=== PATIENT | male | born 1950 | race Caucasian/White ===

== ENCOUNTER 2019-04-02 13:02 | Outpatient (CLI) | payer MEDICARE, BC ==
--- NOTE | 2019-04-02 14:32 | PET ---
EXAM: PET CT skull to mid thigh COMPARISON: 02/01/2019 HISTORY: Cancer of the urinary bladder TECHNIQUE: A PET/CT was performed from the skull to the mid thigh after administration of 11.2 millic uries of F-18 FDG. Evaluation was performed on a [employer] workstation. FINDINGS: NECK: No areas of hypermetabolic activity. The previously seen hypermetabolic lymph nodes in the left supraclavicular region now have a max SUV value of 2.1. CHEST: No areas of hypermetabolic activity ABDOMEN/PELVIS: The hypermetabolic lymph nodes in the retroperitoneum and along the common iliac lea n have decreased in metabolic activity. Maximum SUV value of these lymph nodes is approximately 2.7. No new areas of hypermetabolic activity are seen. SKELETON: No areas of hypermetabolic activity CT images used for attenuation correction show a pacemaker with its leads in the right atrium and samuel tricle. There is an ostomy in the right lower quadrant of the abdomen. There is a stent in the right external iliac artery. IMPRESSION: Improvement in hypermetabolic activity within the left supraclavicular lymph nodes and re troperitoneal lymph nodes.
== END 2019-04-02 13:03 | disposition home or self-care (01) ==
LOC: PET 13:02
PROVIDERS: ATTEND Internal Medicine Hematology & Oncology
DX: C67.9 Malignant neoplasm of bladder, unspecified (principal)
CPT/HCPCS: 78815; A9552

== ENCOUNTER 2019-05-30 09:51 | Outpatient (CLI) | payer MEDICARE, BC ==
--- NOTE | 2019-05-30 15:41 | NM ---
NUCLEAR MEDICINE WHOLE BODY BONE SCAN: HISTORY: Malignant neoplasm of overlapping sites of bladder. COMPARISON: None. TECHNIQUE: The patient was administered 31.30 mCi of Technetium 99m MDP intravenously. Whole body delayed imagi ng is performed. FINDINGS: There is diffuse multifocal radiotracer localization involving the axial as well as appendicular skel eton. Specifically, there is uptake in the calvarium, bilateral shoulders, bilateral clavicles (left greater than right), multiple ribs, multiple thoracic and lumbar vertebrae. There is also uptake in the sacrum, bony pelvis, and proximal to mid left and right femur. IMPRESSION: Multifocal osseous metastases. POS: OFF
== END 2019-05-30 09:52 | disposition home or self-care (01) ==
LOC: NM 09:51
PROVIDERS: ATTEND Internal Medicine Hematology & Oncology
DX: C67.8 Malignant neoplasm of overlapping sites of bladder (principal); C79.51 Secondary malignant neoplasm of bone
CPT/HCPCS: 78306; A9503

== ENCOUNTER 2019-06-24 12:38 | Day surgery (SDC) | payer MEDICARE, BC ==
[2019-06-24 13:15] VITALS: BMI 27.0
[2019-06-24] MEDS ORDERED: Acetaminophen 500 MG TAB PO SCH (13:15)
[2019-06-24] MEDS ORDERED: diphenhydrAMINE 25 MG CAP PO SCH (13:15)
[2019-06-24 18:20] VITALS: BP 115/61; TEMP 97.8
[2019-06-24 18:45] LABS: #Eosinphils 0.1 thou/uL (0.0-0.7); #Lymphocytes 0.5 thou/uL (1.20-3.40); #Monocytes 0.4 thou/uL (0.11-0.59); #Neutrophils 3.6 thou/uL (1.40-6.50); %Basophils 0.2 % (0.0-1.0); %Eosinophils 1.1 % (0.0-10.0); %Lymphocytes 11.1 % (21.0-51.0); %Monocytes 8.1 % (0.0-10.0); %Neutrophils 79.5 % (42.0-75.0); Hemoglobin 7.9 g/dL (14.0-18.0); Mean Corpuscular HGB CONC 31.8 g/dL (32.0-36.0); Mean Corpuscular Hemoglobin 25.3 pg (27.0-31.0); Mean Corpuscular Volume 79.5 fL (78.0-98.0); Platelet Count 161 thou/uL (130-400); RBC Distribution Width 16.9 % (11.5-14.5); Red Blood Cell (RBC) Count 3.13 mill/uL (4.70-6.10); White Blood Cell (WBC) Count 4.5 thou/uL (4.8-10.8)
== END 2019-06-24 18:45 | disposition home or self-care (01) ==
LOC: ONC/OP 12:38 → ONC 12:43 → ONC/OP 18:45
PROVIDERS: ATTEND Internal Medicine Hematology & Oncology
PROC: 30233N1 Transfusion of Nonautologous Red Blood Cells into Peripheral Vein, Percutaneous Approach (ICD-10-PCS; principal; 2019-06-24)
DX: D64.9 Anemia, unspecified (principal); D69.6 Thrombocytopenia, unspecified
CPT/HCPCS: 36415; 36430; 80053; 85025; 86850; 86900; 86901; P9016; Q0163

== ENCOUNTER 2019-07-02 15:05 | Inpatient (IN) | payer MEDICARE, BC ==
[2019-07-02 15:54] LABS: #Lymphocytes 0.1 thou/uL (1.20-3.40); #Monocytes 0.1 thou/uL (0.11-0.59); #Neutrophils 1.3 thou/uL (1.40-6.50); %Basophils 0.7 % (0.0-1.0); %Eosinophils 0.2 % (0.0-10.0); %Lymphocytes 8.8 % (21.0-51.0); %Monocytes 4.1 % (0.0-10.0); %Neutrophils 86.1 % (42.0-75.0); Mean Corpuscular HGB CONC 32.2 g/dL (32.0-36.0); Mean Corpuscular Volume 77.5 fL (78.0-98.0); RBC Distribution Width 16.8 % (11.5-14.5); Red Blood Cell (RBC) Count 3.18 mill/uL (4.70-6.10); White Blood Cell (WBC) Count 1.5 thou/uL (4.8-10.8)
[2019-07-02 16:12] LABS: MDiff Complete? YES; Mean Platelet Volume 10.3 fL (7.4-10.4); Platelet Count 90 thou/uL (130-400)
[2019-07-02 16:13] LABS: Microcytosis SLIGHT = 6-15 cells (100X) (0-5/hpf); Ovalocytes SLIGHT = 2-5 cells (100X) (0-1/hpf); Platelet Morphology Comment Appears Decreased; Polychromasia SLIGHT = 2-3 cells (100X) (0-2/hpf); Schistocytes SLIGHT = 2-5 cells (100X) (0-1/hpf); Target Cells SLIGHT = 2-5 cells (100X) (0-1/hpf); Tear Drops SLIGHT = 2-5 cells (100X) (0-1/hpf)
[2019-07-02 16:24] LABS: ALT (SGPT) 24 U/L (8-55); AST (SGOT) 41 U/L (5-34); Alkaline Phosphatase 521 U/L (40-110); Anion Gap 20 mmol/L (10-20); BUN (Urea Nitrogen) 105 mg/dL (8.4-25.7); Calc. Creatinine Clearance 0 mL/min (70-130); Calcium 7.6 mg/dL (7.8-10.44); Carbon Dioxide 13 mmol/L (23-31); Chloride 97 mmol/L (98-107); Estimated GFR-MDRD 12; Globulin 3.3 g/dL (2.4-3.5); Glucose 278 mg/dL (80-115); Potassium 4.3 mmol/L (3.5-5.1); Protein, Total 6.3 g/dL (5.8-8.1); Sodium 126 mmol/L (136-145)
--- NOTE | 2019-07-02 16:30 | RAD ---
EXAM: Single view of the chest HISTORY: Abnormal laboratory values. Chest pain. COMPARISON: 06/05/2018 FINDINGS: Single view of the chest shows an enlarged but stable cardiomediastinal silhouette. The pa cemaker is unchanged in position. There is no evidence of consolidation, mass, or pleural effusion. The bones are unremarkable. IMPRESSION: No evidence of acute cardiopulmonary disease
[2019-07-02] MEDS ORDERED: Triple Antibiotic Oint 1 GM Packet ONE (16:41)
[2019-07-02 16:47] LABS: CKMB 2.8 ng/mL (0-6.6)
[2019-07-02 16:57] LABS: Bacteria/HPF 4+ HPF (None Seen); Bilirubin Negative (Negative); Blood, Urine 3+ (Negative); Clarity Turbid (Clear); Glucose, Urine (Dipstick) Normal (Negative); Leukocyte 500 Leu/uL (Negative); Nitrite Negative (Negative); Protein, Urine (Dipstick) 100 mg/dL (Neg-Trace); RBC/HPF Greater than 50 HPF (0-3); Squamous Epithelial None Seen HPF (0-3); Urobilinogen Normal mg/dL (Less than 2)
[2019-07-02] MEDS ORDERED: Senokot S 8.6-50 MG TAB PO PRN (19:17)
[2019-07-02 19:26] LABS: Troponin I 0.028 ng/mL (< 0.028)
[2019-07-02] MEDS: Famotidine 20 MG TAB PO SCH (22:00)
[2019-07-02] MEDS: GoLYTELY 4,000 ml Bottle PO SCH ×2 (22:00→23:46)
[2019-07-02 22:02] LABS: Troponin I 0.027 ng/mL (< 0.028)
[2019-07-02] MEDS: Acetaminophen 325 MG TAB PO PRN (22:03)
[2019-07-02] MEDS: Sodium Chloride 0.9% 1,000 ML IV SCH (23:00)
[2019-07-02] MEDS ORDERED: Cefepime 1 GM in Sodium Chloride 0.9% 100 ML IVPB SCH (23:00)
--- NOTE | 2019-07-02 23:20 | HP ---
PRIMARY CARE PHYSICIAN: Dr. Serra. PROCEDURES: Dr. Bennett. ONCOLOGIST: Dr. Naqvi. CHIEF COMPLAINT: Abnormal renal function. HISTORY OF PRESENT ILLNESS: Mr. Mariee is a 68-year-old man who reported to the emergency room after he was noted to have acute on chronic kidney injury, is a patient of Dr. Naqvi for recurrent bladder cancer, received chemo today. Creatinine has slowly been increasing, was 3.96 on 06/25 and then today this morning it was 4.91 and then this afternoon we rechecked it, it was 4.78. Dr. Naqvi had referred the patient to Dr. Bennett some weeks ago when his creatinine continued to climb and he was contacted today and asked for the patient to come to the emergency room. He was also found to have a sodium of 126; when it was checked on 06/25/2019, it was 133; chloride 97, carbon dioxide 13, BUN is 105, creatinine 4.78, estimated GFR is 12, glucose 278, calcium 7.6, AST 41, alkaline phosphatase at 521. Initial troponin was bumped at 0.030. Subsequent troponins have been undetectable. White blood cell count 1.5, hemoglobin at 8, which is at baseline per patient, hematocrit at 24.7, and platelets at 90. Urine shows turbid urine, protein, 3+ blood, leukocyte esterase at 500, white blood cell count 11 to 20, and 4+ bacteria. This has been sent off for culture. Past medical history is pertinent for bladder cancer, DVT, has an AICD for decreased EF, last checked it was 35%. Has an ileocecal conduit and has bilateral ureteral stents. Chemotherapy done today was the second round and he also reports that he got steroids today with his chemo. Urologist is Dr. Lazo in [place] who replaces the bilateral stents every 3 months and he is due to have this done next week. He reports that he feels pretty crummy and is fatigued. Has had a decreased appetite and also decreased fluid intake. Reports some chronic constipation due to the tramadol that he takes. He was recently told that he has some metastases to the bone per the . Reports history of MRSA and some Pseudomonas. Dr. Bennett has seen him in the emergency room and reports that he was going to hydrate the patient, recheck vital signs and see where his renal function is at that point. The patient admitted to the telemetry unit for further management and evaluation. REVIEW OF SYSTEMS: The patient reports fatigue. Denies abdominal pain. Does report appetite changes. Reports constipation. He does report some intermittent abdominal pain around the urostomy, which he reports is relatively new. He reports some confusion and does report some depressive type symptoms around his recent metastases discussion. All systems are reviewed and are negative unless mentioned in the HPI. PAST MEDICAL HISTORY: Bladder cancer, DVT, decreased EF, had a pericardial effusion, has bilateral ureteral stents. PAST SURGICAL HISTORY: Bladder is removed in 2016, was revised. Has an ileal conduit, AICD which was placed in 2018. PSYCHIATRIC HISTORY: Depression. SOCIAL HISTORY: The patient lives at home with his family. He is a former tobacco smoker. Denies drug use or alcohol use. KNOWN ALLERGIES: Adhesive tape, codeine, and vancomycin. HOME MEDICATIONS: Per the ER record, these still need to be reconciled. 1. Eliquis 5 mg p.o. b.i.d. 2. Levothyroxine 175 mcg. 3. Sertraline 300 mg p.o. once a day. 4. Metoprolol 25 mg p.o. once a day. 5. Lamictal 100 mg p.o. once a day. 6. Abilify 2 mg p.o. once a day. 7. Humalog sliding scale. 8. Lantus 30 units subcu b.i.d. 9. Multivitamin with iron 60 mg once a day. 10. Prilosec 20 mg p.o. once a day. 11. Aspirin 81 mg p.o. once a day. 12. Flexeril 10 mg as needed p.r.n. 13. Prosom 1 mg p.r.n. 14. Xanax 0.25 mg p.r.n. 15. Magnesium 400 mg p.o. once a day. 16. Fish oil 300 mg daily. 17. Zofran 4 mg p.o. q.6 hours as needed. PHYSICAL EXAMINATION: VITAL SIGNS: Blood pressure 133/78, pulse is 100, respiratory rate is 20, temp is 98.4, pO2 sats are 100% on room air. CONSTITUTIONAL: The patient appears nontoxic. He is alert and oriented to person, place, and time. HEENT: Head is atraumatic and normocephalic. Eyes, pupils are equally round and reactive to light. Eyelids are normal to inspection. ENT; mouth exam, mucous membranes are dry, teeth are normal. NECK: Normal range of motion. Trachea is midline. RESPIRATORY/CHEST: Breath sounds are clear. Chest expansion is equal. CARDIOVASCULAR: Irregularly irregular. Heart sounds are normal. ABDOMEN: Bowel sounds are hypoactive. Mild point tenderness to either side lateral of stoma. He has a urostomy to right lower quadrant. BACK: Normal range of motion. No tenderness. EXTREMITIES: Upper extremities; motor strength is normal, sensation intact, radial pulses are normal. Lower extremities; normal range of motion, motor strength is normal, pedal pulses are normal. There is no edema noted. NEURO: The patient is oriented to person, place, and time. Speech is normal. SKIN: Warm, dry, normal in color. He is pale, however. PSYCHIATRIC: He has a normal affect. DIAGNOSTIC DATA: EKG in the emergency room shows atrial fibrillation with controlled ventricular response. Has a complete left bundle branch block. T-waves are normal. ST segments are normal. [place] is left. ASSESSMENT AND PLAN: 1. Acute on chronic renal disease. Dr. Bennett has been invited to see the patient in the emergency room. We will add a consult for him. Gently hydrate. Recheck values of his creatinine and sodium in the morning. Hold any nephrotoxic home medications. 2. Hyponatremia. See #1. 3. Atrial fibrillation, rate controlled. We will continue the Eliquis. 4. Diabetes. Add a sliding scale. Restart long-acting insulin. We will monitor a.c. and at bedtime Accu-Cheks. 5. History of hypothyroidism. We will restart home medications. 6. History of depression. We will restart home medications. 7. History of bladder cancer with chemotherapy ongoing. We will ask Dr. Naqvi to consult. 8. Long discussion with the patient on code status. Does not desire CPR or cardiac intervention. He is willing for intubation if it is for a short period. is was at the bedside during discussion on palliative care consult, which they were agreeable. We had made the patient intubation only and would appreciate Palliative Care's input. 9. The patient is already on deep venous thrombosis and gastrointestinal prophylaxis. 10. We have placed the patient in neutropenic precautions due to white blood cell count and ongoing chemotherapy. 11. Hospital course is dependent on clinical findings. Job ID: [id number]
[2019-07-03] MEDS: GoLYTELY 4,000 ml Bottle PO SCH ×5 (02:56→11:30)
[2019-07-03 06:48] LABS: #Lymphocytes 0.2 thou/uL (1.20-3.40); #Monocytes 0.1 thou/uL (0.11-0.59); #Neutrophils 2.9 thou/uL (1.40-6.50); %Eosinophils 0.2 % (0.0-10.0); %Lymphocytes 5.2 % (21.0-51.0); %Monocytes 2.1 % (0.0-10.0); %Neutrophils 92.4 % (42.0-75.0); Hemoglobin 7.2 g/dL (14.0-18.0); Mean Corpuscular HGB CONC 33.3 g/dL (32.0-36.0); Mean Corpuscular Volume 78.1 fL (78.0-98.0); Mean Platelet Volume 9.6 fL (7.4-10.4); Platelet Count 79 thou/uL (130-400); RBC Distribution Width 17.1 % (11.5-14.5); Red Blood Cell (RBC) Count 2.76 mill/uL (4.70-6.10); White Blood Cell (WBC) Count 3.1 thou/uL (4.8-10.8)
[2019-07-03 07:10] LABS: ALT (SGPT) 24 U/L (8-55); AST (SGOT) 44 U/L (5-34); Albumin 2.6 g/dL (3.4-4.8); Alkaline Phosphatase 422 U/L (40-110); Anion Gap 19 mmol/L (10-20); BUN (Urea Nitrogen) 118 mg/dL (8.4-25.7); Bilirubin, Total 1.1 mg/dL (0.2-1.2); Calc. Creatinine Clearance 21 mL/min (70-130); Calcium 7.8 mg/dL (7.8-10.44); Carbon Dioxide 15 mmol/L (23-31); Chloride 100 mmol/L (98-107); Estimated GFR-MDRD 12; Globulin 3.8 g/dL (2.4-3.5); Glucose 244 mg/dL (80-115); Potassium 4.2 mmol/L (3.5-5.1); Protein, Total 6.4 g/dL (5.8-8.1); Sodium 130 mmol/L (136-145)
--- NOTE | 2019-07-03 07:46 | CON ---
DATE OF CONSULTATION: HISTORY OF PRESENT ILLNESS: Mr. Mariee is a 68-year-old white male, known history of chronic renal failure, metastatic bladder cancer, and recently underwent status post palliative chemotherapy. During the initial evaluation by metal machinist, his creatinine was noted to have worsened to more than 4 mg%. In the last clinic visit, he was averaging at about 3.88 mg%. Initially, we felt that he may have had a vancomycin-induced acute renal failure. However, in the last several days, the patient has had decreased p.o. intake. There was also 7-pound weight loss according to the . His p.o. intake is much decreased. REVIEW OF SYSTEMS: Positive for generalized malaise, decreased appetite, and decreased energy level. No gross hematuria. No dysuria. No hematochezia. No melena. No hematemesis. No abdominal pain. No nausea or vomiting. No headache. No diplopia. No chest pain or shortness of breath. HOME MEDICATIONS: Included: 1. Eliquis 5 mg p.o. b.i.d.? 2. Levothyroxine 175 mcg daily. 3. Sertraline 300 mg once a day. 4. Metoprolol ER 25 mg once a day. 5. Lamotrigine 100 mg once a day. 6. Abilify 2 mg daily. 7. Humalog KwikPen - sliding scale. 8. Lantus 30 units subcutaneously b.i.d. 9. Iron tablets 1 tablet b.i.d. 10. Prilosec 20 mg once a day. 11. Alprazolam 0.25 mg p.r.n. 12. Magnesium gluconate 400 mg once a day. 13. Status post daptomycin IV q.2 days. 14. Chemotherapy q.week. PAST MEDICAL HISTORY: 1. Chronic renal failure, multifactorial etiology - ? of vancomycin-induced acute tubular necrosis/interstitial nephritis. 2. Bladder cancer with metastasis, uroepithelial cancer. 3. Status post deep venous thrombosis/status post pulmonary embolism. 4. ? of cirrhosis. 5. Status post pyelonephritis. 6. Status post acute kidney injury. 7. History of renal cortical necrosis. 8. ? cardiomegaly. 9. Bilateral hydronephrosis, currently resolved. 10. Status post atrial fibrillation. 11. Status post melanoma. 12. Seizure disorder. 13. Hypertension. 14. Hypothyroidism. PAST SURGICAL HISTORY: 1. Status post ileostomy. 2. Status post ileal conduit placement. 3. Status post cystectomy. 4. Status post pacemaker placement. 5. Status post lymphadenectomy. 6. Status post bilateral ureteral stent placement. 7. Status post upper GI endoscopy. 8. Status post TURP. 9. Status post cystoscopy. 10. Status post IVC filter placement. 11. Status post left nephrostomy tube placement. 12. Status post colonoscopy. 13. Status post cardiac catheterization. 14. Status post AICD placement. SOCIAL HISTORY: The patient lives in [place], , 3 step children. 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 Education, college graduate. He smoked for 27 years, 2 packs a day, currently not smoking. Currently, no alcohol. Status post blood transfusion. ALLERGIES: ? OF VANCOMYCIN. IMMUNIZATIONS: Up-to-date. TRAUMA: None. HOSPITALIZATIONS: Please see past medical history. FAMILY HISTORY: No family history of ESRD. PHYSICAL EXAMINATION: VITAL SIGNS: Blood pressure is 90/70, heart rate is 70, weight 227 pounds, height 60, BMI of 27. GENERAL: Awake, alert, comfortable, lethargic, not in overt distress. SKIN: Decreased turgor. HEENT: Slightly pale conjunctivae. Anicteric sclerae. NECK: No neck mass. No carotid bruits. No JVD. CHEST: No deformities. LUNGS: Clear breath sounds. No wheezing. No crackles. HEART: Normal sinus rhythm. No murmurs. No gallops. No rubs. ABDOMEN: Globular, soft, and nontender. No masses. Positive for ileostomy site. EXTREMITIES: Trace edema. NEUROLOGIC: The patient is awake, oriented to 3 spheres, not in distress. Moving all extremities. IMAGING STUDIES: Chest x-ray shows no CHF or any infiltrates. LABORATORY DATA: July 02, 2019; white count 1.5, hemoglobin is 8, hematocrit 24.7. Sodium 126, potassium 4.3, chloride 97, carbon dioxide 13, BUN 105, creatinine 4.78, glucose 278, calcium 7.6. Troponin I of 0.030. AST 41, ALT 24, alkaline phosphatase 521. Albumin is 3.0. ASSESSMENT AND PLAN: 1. Acute kidney injury on top of his chronic renal failure - I suspect a prerenal component with this patient. He has had weight loss of about 7 pounds and has decreased p.o. intake. Continue current IV hydration. Currently, on normal saline at 125 mL/hour. I will probably also include albumin infusion with this patient at 25 g IV q.6. I do not see any indication for any emergent hemodialysis with this patient. 2. Pancytopenia secondary to his chemotherapy. 3. Hypoalbuminemia. Decreased p.o. intake as well as ? of history of cirrhosis. Albumin infusion at 25 g IV q.6. 4. There is no evidence of volume overload by examination or by chest x-ray. 5. Metabolic acidosis. Start sodium bicarbonate 650 mg p.o. t.i.d. 6. Continue supportive care. Please note, this patient has history of metastatic cancer from a uroepithelial etiology. Thank you for the consult. We will continue to follow. Job ID: [id number]
[2019-07-03] MEDS: Polyethylene Glycol 3350 17 GM Packet PO SCH ×2 (08:14→20:37)
[2019-07-03] MEDS: Sodium Bicarbonate Tab 325 MG TAB PO SCH ×3 (08:47→20:37)
[2019-07-03] MEDS: Sodium Chloride 0.9% 1,000 ML IV SCH ×2 (08:48→17:44)
--- NOTE | 2019-07-03 09:09 | PRG ---
DATE OF SERVICE: 07/03/2019 SUBJECTIVE: Mr. Mariee is a 68-year-old white male with known multiple medical problems, which includes chronic renal failure secondary to a presumed acute kidney injury from ATN/interstitial nephritis from his vancomycin. He was seen in the clinic several weeks ago and creatinine was about 3.7, but this has worsened over time. I feel that there is a component of volume depletion with this patient. We have started him on normal saline. This morning, we will start him on albumin infusion. He has also received palliative chemotherapy with Dr. Naqvi. He is currently pancytopenic. The patient voices no complaints of chest pain or shortness of breath. Please note, the chest x-ray showed clear findings yesterday. OBJECTIVE: VITAL SIGNS: Blood pressure 96/59, heart rate 91, respiratory rate 16, temperature 97.7, and pulse ox 99% on room air. GENERAL: Awake, alert, sitting comfortable, not in distress. SKIN: Adequate turgor. HEENT: He has slightly pale conjunctivae. Anicteric sclerae. No neck mass. No carotid bruits. No JVD. CHEST: No deformities. LUNGS: Clear breath sounds. No wheezing. No crackles. HEART: Normal sinus rhythm. No murmurs. No gallops. No rubs. ABDOMEN: Globular, soft, and nontender. No masses. EXTREMITIES: No edema. No deformities. Please note, he has an ileostomy. MEDICATIONS: Medications of July 03, 2019, were reviewed. LABORATORY DATA: Laboratories of July 03, 2019; white count 3.1, hemoglobin 7.2. Sodium 130, potassium 4.2, chloride 100, carbon dioxide 15, BUN 118, creatinine 4.85, GFR 12 mL/minute, glucose 244, calcium 7.8, AST 44, ALT 24, and albumin is 2.6. ASSESSMENT AND PLAN: 1. Acute kidney injury on top of his chronic renal failure - superimposed prerenal azotemia. Continue normal saline, volume repletion. In addition, we will add albumin 25 g IV q.6 for the next several days. There is no indication for any dialytic intervention. 2. Chronic renal failure - consider the possibility of pervious chronic renal injury from chronic interstitial nephritis? Continue supportive care. 3. We will attempt to do another renal ultrasound on this patient. Please note, his urinalysis on July 02, 2019, showed 3+ blood, rbc is greater than 50, wbc is 11 to 20. He has also proteinuria. 4. Overall agree with current management. Continue supportive care. Recheck basic metabolic panel and CBC in a.m. Job ID: [id number]
--- NOTE | 2019-07-03 11:15 | CON ---
DATE OF CONSULTATION: REASON FOR CONSULT: Urothelial carcinoma. HISTORY OF PRESENT ILLNESS: Mr. Mariee is a pleasant 68-year-old gentleman with metastatic urothelial carcinoma, who has been on treatment with gemcitabine. He presented to the clinic yesterday with weakness and confusion. His creatinine has been climbing over the last several weeks, so he was sent to the emergency room for evaluation. The patient has a longstanding history of carcinoma in situ of the bladder, underwent BCG treatments several years ago. He has also had an incarcerated hernia and a history of prostate cancer. He was admitted through the ER yesterday. Dr. Bennett has seen the patient. He was started on hydration. His creatinine was 4.78 yesterday and slightly worse today. The patient was seen at bedside with present. He is confused. He does have some blood in his urine. PAST MEDICAL HISTORY: 1. Metastatic urothelial carcinoma. 2. History of prostate cancer in remission. 3. Recent incarcerated hernia. 4. Coronary artery disease. 5. Diabetes. 6. Hypertension. 7. High cholesterol. 8. History of reflux. 9. History of blood clots. PAST SURGICAL HISTORY: Numerous bladder surgeries, defibrillator placement, incarcerated hernia repair and ileal conduit. ALLERGIES: CODEINE. HOME MEDICATIONS: Abilify, alprazolam, aspirin, Eliquis, estazolam, Humalog, lamotrigine, Lantus, levothyroxine, Megace, metoprolol, iron, Prilosec, tramadol, and Zoloft. FAMILY HISTORY: Sister had lung cancer. Grandfather had prostate cancer. SOCIAL HISTORY: , lives with his spouse. 24-aube-bils history of smoking. REVIEW OF SYSTEMS: Unable to obtain secondary to altered mental status. PHYSICAL EXAMINATION: VITAL SIGNS: Temperature is 97.6, pulse is 80, respiratory rate 20, blood pressure is 88/50. He is 95% on room air. GENERAL: This is a chronically ill-appearing male, in no acute distress. HEENT: Normocephalic, atraumatic. NECK: Supple. CV: Regular rate and rhythm. LUNGS: Clear. ABDOMEN: Obese. Bowel sounds are positive. : He has blood-tinged urine. EXTREMITIES: No clubbing or cyanosis. SKIN: Scattered bruising. NEUROLOGICAL: Nonfocal. PSYCH: He is disoriented. PERTINENT LABS AND X-RAYS: Current WBCs are 3.1, hemoglobin 7.2, hematocrit 21.5, platelet count 79,000. He has 92% neutrophils, 5% lymphocytes. ANC is 2.9. Sodium is 130, potassium 4.2, chloride 100, CO2 is 15, BUN is 118, creatinine 4.85, calcium 7.8, bilirubin 1.1, AST is 44, ALT is 24, alkaline phosphatase is 422. Serum total protein is 6.4, albumin 2.6, globulin 3.8. Urine shows 4+ bacteria. ASSESSMENT: 1. Metastatic urothelial carcinoma with lymph node and bone metastases. 2. History of prostate cancer in remission. 3. Acute on chronic renal failure. 4. Failure to thrive. DISCUSSION: The patient has had decline over the last several weeks with worsening renal function. The patient and spouse have had conversations regarding advance directives and end of life care. They have understood that all treatment was palliative. states she talked to Mr. Mariee yesterday and he would prefer hospice. We will initiate a palliative care consult to assist with planning for inpatient versus home. We will continue to provide supportive care. Thank you for the consult. Job ID: [id number]
[2019-07-03] MEDS: Albumin 25% 25 GM/100 ML BOT IVPB SCH ×2 (12:47→17:42)
--- NOTE | 2019-07-03 15:02 | PDOC.PALCO ---
Palliative Care Consult - Consult Details Requesting Physician: Dr Naqvi Reason for Consult: goals of care, family support, complex decision-making Family Members Present: - Pertinent HPI 68 year old male who is a patient of Dr Naqvi and was at the Cancer [facility] receiving chemo for recurrent bladder cancer. Creatinine has been increasing 3.9 on 06/25 and 4.9 07/02. Patient was sent to the emergency room for evaluation secondary to acute on chronic kidney injury. Onset of Afib, admitted to telemetry for medical management. - Pertinent PMH Bladder cancer, DVT, Decreased EF, pericardial effusion, bilateral ureteral stints, AICD - Social History Smoking Status: Current every day smoker Smoking: quit greater than 1 year Alcohol Use: none Drug Use History: none Living Situation: (Lives independently with his in [place]) - Medications MAR Reviewed: Yes - Allergies Allergies/Adverse Reactions: Allergies Allergy/AdvReac Type Severity Reaction Status Date / Time adhesive tape Allergy Verified 06/24/19 13:21 codeine Allergy Verified 06/24/19 13:13 vancomycin Allergy Verified 06/24/19 13:13 - Subjective Sleeping but arousable, mild confusion. ROS negative with the exception of sleepiness and weakness. - Objective Vital Signs: Vital Signs - Most Recent Temp Pulse Resp BP Pulse Ox 97 F L 90 20 89/58 L 98 07/03/19 12:00 07/03/19 12:00 07/03/19 12:00 07/03/19 12:00 07/03/19 12:00 Palliative Performance Scale: 40 - Advance Directives Medical Power of Editor News: - Physical Exam Constitutional: confusion HEENT: moist MMs, sclera anicteric, EOMI Respiratory: unlabored breathing Cardiovascular: irregular Gastrointestinal: soft, non-tender, positive bowel sounds Skin: cap refill <2 seconds - Problem List (1) Palliative care encounter Code(s): Z51.5 - ENCOUNTER FOR PALLIATIVE CARE Current Visit: Yes Status: Acute (2) [id number] kidney injury Code(s): N17.9 - ACUTE KIDNEY FAILURE, UNSPECIFIED; N18.9 - CHRONIC KIDNEY DISEASE, UNSPECIFIED Current Visit: Yes Status: Acute (3) Bladder cancer Current Visit: Yes Status: Acute - Plan/Recommendations Plan: Life review with , they met at work years ago. Discussed current kidney disease and bladder cancer with and utilized a "teach back method". understands that kidneys may improve slightly but have poor functionality and that limited opportunity to palliate metastatic cancer. Discussed Hospice as well as support in home for [facility]. states she asked her what he wanted and he said "to be comfortable". *Patient enjoys his dogs and games on his tablet. *Allow to process information tonight *revisit in the morning and most likely transition to hospice care. *Palliative care will follow up 08/03 and answer any questions or identify resources to achieve goals of care for this gentleman. *Discussed caregiver strain and measures to allow Mrs Mariee to care for herself by accepting help from her sister and others in her life who are willing to offer support. [75] minutes spent on this encounter with >50% of the time in counseling and coordination of care. Thank you for this very appropriate consult.
[2019-07-03] MEDS: Cefepime 0.5 GM, Admixture Fee 1 EACH in Sodium Chloride 0.9% 100 ML IVPB SCH (20:37)
[2019-07-03] MEDS: Famotidine 20 MG TAB PO SCH (20:37)
[2019-07-04] MEDS: Albumin 25% 25 GM/100 ML BOT IVPB SCH ×5 (00:53→23:14)
[2019-07-04] MEDS: Sodium Chloride 0.9% 1,000 ML IV SCH ×3 (04:35→21:21)
[2019-07-04 05:09] LABS: #Lymphocytes 0.2 thou/uL (1.20-3.40); #Neutrophils 1.7 thou/uL (1.40-6.50); %Eosinophils 0.2 % (0.0-10.0); %Lymphocytes 8.4 % (21.0-51.0); %Monocytes 0.9 % (0.0-10.0); %Neutrophils 90.5 % (42.0-75.0); Hemoglobin 6.3 g/dL (14.0-18.0); Mean Corpuscular HGB CONC 32.8 g/dL (32.0-36.0); Mean Corpuscular Hemoglobin 25.1 pg (27.0-31.0); Mean Corpuscular Volume 76.4 fL (78.0-98.0); Mean Platelet Volume 10.5 fL (7.4-10.4); Platelet Count 55 thou/uL (130-400); RBC Distribution Width 17.1 % (11.5-14.5); Red Blood Cell (RBC) Count 2.52 mill/uL (4.70-6.10); White Blood Cell (WBC) Count 1.9 thou/uL (4.8-10.8)
[2019-07-04 05:15] LABS: Anion Gap 19 mmol/L (10-20); BUN (Urea Nitrogen) 114 mg/dL (8.4-25.7); Calc. Creatinine Clearance 26 mL/min (70-130); Calcium 7.5 mg/dL (7.8-10.44); Carbon Dioxide 13 mmol/L (23-31); Chloride 108 mmol/L (98-107); Estimated GFR-MDRD 16; Glucose 173 mg/dL (80-115); Potassium 4.1 mmol/L (3.5-5.1); Sodium 136 mmol/L (136-145)
[2019-07-04] MEDS ORDERED: Albumin 25% 25 GM/100 ML BOT IVPB ONE (08:31)
--- NOTE | 2019-07-04 08:52 | PRG ---
DATE OF SERVICE: 07/04/2019 SUBJECTIVE: Mr. Mariee is a 68-year-old white male, who was seen for his acute kidney injury on top of his chronic renal failure. We felt that he was volume depleted. For that reason, he is given normal saline as well as albumin infusion. Renal function slightly improved with IV hydration. No new complaints today. Palliative consultation has also been done with the patient in the presence of his . He has no other complaints today. He feels comfortable. OBJECTIVE: VITAL SIGNS: Blood pressure is noted at 124/65, heart rate 98, respiratory rate 17, temperature 97.7, pulse ox 96%. GENERAL: The patient is awake, comfortable, not in overt distress. SKIN: Adequate turgor. HEENT: Pale conjunctivae. Anicteric sclerae. NECK: No neck mass. No carotid bruits. No JVD. CHEST: No deformities. LUNGS: Clear breath sounds. No wheezing. No crackles. HEART: Normal sinus rhythm. No murmurs. No gallops. No rubs. ABDOMEN: Globular, soft, nontender. No masses. Positive for ileostomy. EXTREMITIES: No edema. No deformities. MEDICATIONS: Medications of July 04, 2019, reviewed. LABORATORY DATA: Laboratories of July 04, 2019; white count 1.9, hemoglobin 6.3, platelet count is 55,000. Sodium 136, potassium 4.1, chloride 108, carbon dioxide 13, BUN 114, creatinine 3.77, glucose 173, calcium 7.5. ASSESSMENT AND PLAN: 1. Acute kidney injury on top of his chronic renal failure-superimposed prerenal azotemia, improving renal function. Continue gentle volume repletion. Continue albumin infusion for one more day. Continue to optimize hemodynamics. 2. Hypotension, much improved with volume repletion. 3. Anemia. We will give 2 units of packed RBC. Please note, the patient is considering hospice. Once he goes to hospice, we will discontinue active treatment. 4. Agree with current management. Job ID: [id number]
[2019-07-04] MEDS: Polyethylene Glycol 3350 17 GM Packet PO SCH ×2 (09:12→21:22)
[2019-07-04] MEDS: Sodium Bicarbonate Tab 325 MG TAB PO SCH ×3 (09:13→21:22)
--- NOTE | 2019-07-04 11:17 | PDOC.MOPN ---
Interval History: awake and alert today, denies complaints. - Vital Signs Vital Signs: Vital Signs (12 hours) Temp Pulse Resp BP Pulse Ox 07/04/19 09:20 58 L 20 99 07/04/19 08:10 97.7 F 98 17 124/65 96 07/04/19 03:22 97.5 F L 101 H 18 96/54 L 95 07/04/19 00:00 98.0 F 104 H 18 109/68 100 Weight Admit Weight 219 lb 9.6 oz Weight 215 lb 6.4 oz - Physical Exam General: Alert Lungs: Clear to auscultation Cardiovascular: Regular rate Abdomen: Normal bowel sounds Extremities: No clubbing, No cyanosis, No edema, Normal pulses, No tenderness/ swelling Neurological: Normal speech - Labs Result Diagrams: 07/04/19 04:42 07/04/19 04:42 Lab results: Laboratory Results - last 24 hr 07/04/19 08:53: Blood Type O POSITIVE, Antibody Screen NEGATIVE, Crossmatch See Detail 07/04/19 04:42: WBC 1.9 L, RBC 2.52 L, Hgb 6.3 L, Hct 19.2 L, MCV 76.4 L, MCH 25.1 L, MCHC 32.8, RDW 17.1 H, Plt Count 55 L, MPV 10.5 H, Neutrophils % 90.5 H , Lymphocytes % 8.4 L, Monocytes % 0.9, Eosinophils % 0.2, Basophils % 0.0, Neutrophils # 1.7, Lymphocytes # 0.2 L, Monocytes # 0.0 L, Eosinophils # 0.0, Basophils # 0.0 07/04/19 04:42: Sodium 136, Potassium 4.1, Chloride 108 H, Carbon Dioxide 13 L, Anion Gap 19, BUN 114 H, Creatinine 3.77 H, Estimated GFR (MDRD) 16, Glucose 173 H, Calcium 7.5 L Status: lab reviewed by me A/P - Problem (1) [id number] kidney injury Current Visit: Yes Code(s): N17.9 - ACUTE KIDNEY FAILURE, UNSPECIFIED; N18.9 - CHRONIC KIDNEY DISEASE, UNSPECIFIED Status: Acute (2) Bladder cancer Current Visit: Yes Status: Acute (3) Pancytopenia Current Visit: Yes Code(s): D61.818 - OTHER PANCYTOPENIA Status: Acute - Plan Plan: 1. transfuse blood today 2. continue gentle hydration 3. poor prognosis, patient and considering home with hospice 4. supportive care.
[2019-07-04] MEDS: Acetaminophen 325 MG TAB PO PRN (11:29)
--- NOTE | 2019-07-04 14:04 | ULT ---
Exam: Bilateral renal ultrasound HISTORY: Evaluate for obstructed ureteral stents. COMPARISON: None FINDINGS: Right kidney: Normal cortical echotexture. Mild hydronephrosis. Nonspecific cortical calcification. Right kidney measurements: 14.0 x 7.6 x 6.7 cm. Left kidney: Normal cortical echotexture. Moderate hydronephrosis. Left kidney measurements 13.7 x 5.7 x 5.9 cm. Urinary bladder: Surgically absent. Patient has ileal conduit. IMPRESSION: 1. Mild right sided hydronephrosis. Moderate left-sided hydronephrosis.
--- NOTE | 2019-07-04 14:57 | PQF ---
COLBY ROTHMAN SAVAN, MD [id number] CLINICAL DOCUMENTATION IMPROVEMENT CLARIFICATION FORM: ICD-10 Updated PLEASE DO AN ADDENDUM TO THE PROGRESS NOTE WITH ANY DOCUMENTATION UPDATES OR ADDITIONS AND CARRY THROUGH TO DC SUMMARY. THANK YOU. Date: 07/04/2019 ATTN: DR. Quinn WILSON Please exercise your independent, professional judgment in responding to the clarification form. Clinical indicators are provided on the bottom of this form for your review. Please check appropriate box(s): [ x ] Protein Calorie Malnutrition: [ ] Mild [ ] Moderate [x ] Severe [ ] Underweight without malnutrition [ ] Cachexia [ ] Other diagnosis [ ] Unable to determine In addition, please specify: Present on Admission (POA): [ x ] Yes [ ] No [ ] Unable to determine CLINICAL INDICATORS - SIGNS / SYMPTOMS / LABS / RESULTS AND LOCATION IN MR 07/03 RD: NUTRITION DIAGNOSIS MALNUTRITION EVIDENCED BY 17.2% WEIGHT LOSS IN 4 MONTHS SUGGESTIVE OF SEVERE MALNUTRITION IN THE CONTEXT OF CHRONIC ILLNESS. 07/03 RD WOULD RECOMMEND TF REPORTS LIKELY DESIRE FOR COMFORT CARE OF HOSPICE. 07/02 NEPHROLOGY CONSULT (VAIL) IN THE LAST SEVERAL DAYS, THE PATIETN HAS HAD DECREASED PO INTAKE. THERE WAS ALSO 7-POUND WEIGHT ACCORDING TO THE . HIS PO INTAKE IS MUCH DECREASED. POSITIVE FOR GENERALIZED MALAISE, DECREASED APPETITE AND DECREASED ENERGY LEVEL. PHYSICAL EXAM: DECREASED SKIN TURGOR. 07/03 CONSULT (NELDA) ASSESSMENT : 4). FAILURE TO THRIVE RISK: WEIGHT LOSS, DECREASED APPETITE, POOR PO INTAKE (VAIL / CONSULT) 07/02 HX DEPRESSION, BLADDER CANCER W METS/ ONGOING CHEMOTHERAPY (OBRIANT/H&P) 07/02 TREATMENTS: DIETARY CONSULT 07/03 RECOMMEND NEPRO TID (RD/ 07/03) IV FLUID HYDRATION (07/02-PRESENT) Moderate Malnutrition (in acute illness) Energy Intake: <75% of estimated energy requirement for > 7 days Weight Loss: 1-2%/1 week; 5%/ 1 month; 7.5%/3 months Other: mild body fat loss; mild muscle mass loss; mild fluid accumulation; Severe Malnutrition (in acute illness) Energy Intake: < 50% of estimated energy requirement for > 5 days Weight Loss: >1-2%/1 week; >5%/1 month; >7.5%/3 months Other: moderate body fat loss; moderate muscle mass loss; moderate- severe fluid accumulation; measurably reduced demand generator manager strength Moderate Malnutrition (in chronic illness) Energy Intake: <75% of estimated energy requirement for >1 month Weight Loss: 5%/1 month; 7.5%/3 months; 10%/6 months; 20%/1 year Other: mild body fat loss; mild muscle mass loss; mild fluid accumulation Severe Malnutrition (in chronic illness) Energy Intake: <75% of estimated energy requirement for >1 month Weight Loss: >5%/1 month; >7.5%/3 months; >10%/6 months; >20%/1 year Other: severe body fat loss; severe muscle mass loss; severe fluid accumulation ; measurably reduced demand generator manager strength THANK YOU! [employer] (This form is maintained as a part of the permanent medical record) 2014 [employer] All Rights Reserved [email or web address] [phone] [email or web address]
[2019-07-04] MEDS: Acetaminophen/Codeine 30-300mg Tablet PO PRN ×2 (15:40→22:14)
[2019-07-04] MEDS: Cefepime 0.5 GM, Admixture Fee 1 EACH in Sodium Chloride 0.9% 100 ML IVPB SCH (21:21)
[2019-07-04] MEDS: Famotidine 20 MG TAB PO SCH (21:22)
[2019-07-04] MEDS ORDERED: Sodium Chloride 0.9% 250 ML IV SCH (22:45)
[2019-07-04 23:10] LABS: #Lymphocytes 0.1 thou/uL (1.20-3.40); #Neutrophils 3.8 thou/uL (1.40-6.50); %Basophils 0.8 % (0.0-1.0); %Eosinophils 0.2 % (0.0-10.0); %Lymphocytes 2.4 % (21.0-51.0); %Monocytes 0.2 % (0.0-10.0); %Neutrophils 96.4 % (42.0-75.0); Hemoglobin 8.4 g/dL (14.0-18.0); Mean Corpuscular HGB CONC 33.2 g/dL (32.0-36.0); Mean Corpuscular Hemoglobin 25.7 pg (27.0-31.0); Mean Corpuscular Volume 77.4 fL (78.0-98.0); Mean Platelet Volume 11.2 fL (7.4-10.4); Platelet Count 50 thou/uL (130-400); RBC Distribution Width 17.1 % (11.5-14.5); Red Blood Cell (RBC) Count 3.26 mill/uL (4.70-6.10); White Blood Cell (WBC) Count 3.9 thou/uL (4.8-10.8)
[2019-07-04 23:26] LABS: Lactic Acid 1.7 mmol/L (0.5-2.2)
[2019-07-04 23:29] LABS: Anion Gap 18 mmol/L (10-20); BUN (Urea Nitrogen) 96 mg/dL (8.4-25.7); Calc. Creatinine Clearance 32 mL/min (70-130); Calcium 8.3 mg/dL (7.8-10.44); Carbon Dioxide 14 mmol/L (23-31); Chloride 111 mmol/L (98-107); Estimated GFR-MDRD 20; Glucose 215 mg/dL (80-115); Magnesium 2.7 mg/dL (1.6-2.6); Potassium 3.5 mmol/L (3.5-5.1); Sodium 139 mmol/L (136-145)
[2019-07-05] MEDS ORDERED: Digoxin 0.5 MG/2 ML AMP SLOW IVP SCH (00:15)
[2019-07-05] MEDS: Acetaminophen/Codeine 30-300mg Tablet PO PRN ×2 (04:16→21:42)
[2019-07-05] MEDS: Albumin 25% 25 GM/100 ML BOT IVPB SCH (04:17)
[2019-07-05 05:26] LABS: #Lymphocytes 0.1 thou/uL (1.20-3.40); #Neutrophils 2.5 thou/uL (1.40-6.50); %Eosinophils 0.3 % (0.0-10.0); %Lymphocytes 4.7 % (21.0-51.0); %Monocytes 0.2 % (0.0-10.0); %Neutrophils 94.7 % (42.0-75.0); Hemoglobin 7.6 g/dL (14.0-18.0); Mean Corpuscular HGB CONC 32.5 g/dL (32.0-36.0); Mean Corpuscular Hemoglobin 25.7 pg (27.0-31.0); Mean Platelet Volume 11.6 fL (7.4-10.4); Platelet Count 54 thou/uL (130-400); RBC Distribution Width 17.2 % (11.5-14.5); Red Blood Cell (RBC) Count 2.94 mill/uL (4.70-6.10); White Blood Cell (WBC) Count 2.6 thou/uL (4.8-10.8)
[2019-07-05 05:36] LABS: Anion Gap 17 mmol/L (10-20); BUN (Urea Nitrogen) 92 mg/dL (8.4-25.7); Calc. Creatinine Clearance 35 mL/min (70-130); Calcium 8.2 mg/dL (7.8-10.44); Carbon Dioxide 13 mmol/L (23-31); Chloride 111 mmol/L (98-107); Estimated GFR-MDRD 23; Glucose 214 mg/dL (80-115); Potassium 3.8 mmol/L (3.5-5.1); Sodium 137 mmol/L (136-145)
[2019-07-05] MEDS: Sodium Chloride 0.9% 1,000 ML IV SCH ×2 (06:31→16:15)
--- NOTE | 2019-07-05 07:13 | PDOC.HOSPP ---
- Subjective Encounter Date: 07/04/19 Encounter Time: 11:45 Subjective: patient is new to me. seen and examined at bedside. nurse and spouse present. patient complains of abdominal pain. limited historian. spouse notes patient has history of bladder cancer with ileal conduit and is also on oral anticoagulation at home and has had darkish colored output from ileostomy. notes patient started 2 rounds of palliative chemotherapy low-dose for past 2 tuesdays. states patient is a DNR and DNI per prior discussion with her spouse. notes consideration for hospice. nurse notes patient ordered prbc transfusion today. - Objective Vital Signs & Weight: Vital Signs (12 hours) Temp Pulse Resp BP Pulse Ox 07/05/19 04:14 98.9 F 110 H 20 131/62 98 07/05/19 02:06 101 H 105/63 07/05/19 01:16 86 20 88/61 L 98 07/05/19 01:05 132 H 07/05/19 00:42 132 H 105/63 07/04/19 22:46 132 H 91/56 L 07/04/19 20:15 100 07/04/19 20:00 97.9 F 122 H 22 H 105/57 L 100 Weight Admit Weight 219 lb 9.6 oz Weight 215 lb 6.4 oz I&O: 07/04/19 07/05/19 07/06/19 06:59 06:59 06:59 Intake Total 3850 3929 Output Total 3750 1400 Balance 100 2529 Result Diagrams: 07/05/19 04:49 07/05/19 04:49 Hospitalist ROS - Review of Systems Other: pertinent positives per SUBJECTIVE; remainder ROS otherwise negative. - Medication Medications: Active Medications Generic Name Dose Route Start Last Admin Trade Name Freq PRN Reason Stop Dose Admin Acetaminophen 650 mg 07/02/19 19:17 07/04/19 11:29 Tylenol PO 650 mg Q4H PRN Administration Headache/Fever/Mild Pain (1-3) Acetaminophen/Codeine Phosphate 1 tab 07/04/19 11:44 07/05/19 04:16 Tylenol #3 PO 1 tab Q6H PRN Administration Pain Albuterol/Ipratropium 3 ml 07/04/19 09:07 07/04/19 09:20 Duoneb NEB 3 ml Q4H PRN Administration SOB Famotidine 20 mg 07/02/19 21:00 11/14/19 21:22 Pepcid PO 20 mg QPM HERBERT Administration Sodium Chloride 1,000 mls @ 100 mls/hr 07/02/19 23:00 07/05/19 06:31 Normal Saline 0.9% IV 1,000 mls .Q10H HERBERT Administration Cefepime HCl 0.5 gm/ 100 mls @ 200 mls/hr 07/03/19 21:00 07/04/19 21:21 Miscellaneous Medication 1 IVPB 100 mls each/ Sodium Chloride 2100 HERBERT Administration Polyethylene Glycol 17 gm 07/03/19 09:00 07/04/19 21:22 Miralax PO Not Given BID HERBERT Sodium Bicarbonate 650 mg 07/03/19 09:00 07/04/19 21:22 Bicarbonate, Sodium PO 650 mg TID HERBERT Administration Sodium Chloride 10 ml 07/04/19 09:00 07/04/19 21:21 Flush - Normal Saline IVF 10 ml Q12HR HERBERT Administration - Exam General - other findings: elderly male, ill in appearance, awake and alert Eye: PERRL, anicteric sclera Eye - other findings: conjuctival pallor noted, EOMI ENT: normocephalic atraumatic ENT - other findings: no facial asymmetry Neck: supple Heart: RRR, no murmur Heart - other findings: no chest wall TTP Respiratory: normal chest expansion, no tachypnea Respiratory - other findings: nonlabored respiration on anterior auscultation. Gastrointestinal: soft, distended Gastrointestinal - other findings: tender to palpation in mid to lower abdomen. ileal conduit with darkyellow Extremities: no cyanosis, no edema Skin: no lesions, no rashes Skin - other findings: skin pallor noted Musculoskeletal: generalized weakness Psychiatric: normal behavior, oriented to person, oriented to place Hosp A/P - Plan metastatic bladder cancer. poor prognosis noted. hospice consideration. patient has required ureteral stents q3 months last 3 months by urologist and is scheduled for exchange next week. check renal u/s to assess for obstructive uropathy and decision to exchange for palliative reasons dependent on family decision. code status discussed with spouse (medical POA) and per her prior discussion with patient, decision is for DNR and DNI. nurse at bedside and will update code status to DNR and DNI. start tylenol #3 for pain control. CRISTOBAL on CKD. likely due to prerenal etiology and obstructive uropathy. nephrology following. continue IVF. check renal ultrasound pancytopenia. supportive prbc transfusions ordered. however, consideration of hospice noted and recommend judicious transfusion. monitor neutropenia and continue precautions as appropriate severe protein calorie malnutrition POA, as evidenced per dietitian note generalized weakness and decondiiotning. PT and OT consult once appropriate UTI. ?colonization. continue IVF, IV cefepime in interim. ucx noted DVT px: SCD. hold OAC in setting of profound anemia code status: DNR and DNI poor prognosis check AM labs dispo: unclear. possibly hospice
[2019-07-05] MEDS: Polyethylene Glycol 3350 17 GM Packet PO SCH ×2 (08:59→21:32)
[2019-07-05] MEDS: Sodium Bicarbonate Tab 325 MG TAB PO SCH ×3 (09:00→21:32)
--- NOTE | 2019-07-05 10:10 | PRG ---
DATE OF SERVICE: 07/05/2019 SERVICE: Renal Medicine. SUBJECTIVE: Mr. Mariee is a 68-year-old white male with known history of chronic renal failure and admitted for worsening renal function. It was felt that he was simply volume depleted for worsening creatinine. Volume repletion has been given, and there is significant improvement with renal function. 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 Please note that the family is considering hospice care. No new complaints today. No chest pain or shortness of breath. OBJECTIVE: VITAL SIGNS: Blood pressure is 94/53, heart rate 97, respiratory rate 16, temperature 97.6, and pulse ox 100%. GENERAL: The patient is awake, alert, comfortable, not in distress. SKIN: Adequate turgor. HEENT: Slightly pale conjunctivae. Anicteric sclerae. NECK: No neck mass. No carotid bruits. No JVD. CHEST: No deformities. LUNGS: Decreased breath sounds. HEART: Normal sinus rhythm. No murmurs. No gallops. No rubs. ABDOMEN: Globular, soft. Positive for ileostomy site. EXTREMITIES: No edema. No deformities. MEDICATIONS: Of July 05, 2019, were reviewed. LABORATORY DATA: Laboratories of July 05, 2019; white count 2.6 and hemoglobin 7.6. Sodium 137, potassium 3.8, chloride 111, carbon dioxide 13, BUN 92, creatinine 2.81, glucose 214, and calcium 8.2. ASSESSMENT AND PLAN: 1. Acute kidney injury/on top of his chronic renal failure, superimposed prerenal azotemia, slowly improving renal function with volume repletion and optimization of his hemodynamics. Please note, there is no indication for any dialytic intervention with this patient. 2. Bladder cancer with metastatic lesions to the bones - continuing palliative care. The patient has received palliative chemotherapy with Dr. Naqvi. Continue supportive care. As previously mentioned, the patient is considering hospice. 3. Anemia. P.r.n. blood transfusion. 4. Agree with current management. Continue supportive care. Job ID: [id number]
[2019-07-05] MEDS ORDERED: Promethazine 25 MG TAB PO PRN (12:08)
--- NOTE | 2019-07-05 12:08 | PDOC.HOSPP ---
- Subjective Encounter Date: 07/05/19 Encounter Time: 12:06 Subjective: Mr. Mariee was seen today in follow-up of acute on chronic kidney injury. He complains of feeling uncomfortable. He notes some nausea and pain in his chest and back. - Objective Vital Signs & Weight: Vital Signs (12 hours) Temp Pulse Resp BP Pulse Ox 07/05/19 11:15 97.7 F 121 H 18 100/62 99 07/05/19 07:54 97.6 F 97 16 94/53 L 100 07/05/19 04:14 98.9 F 110 H 20 131/62 98 07/05/19 02:06 101 H 105/63 07/05/19 01:16 86 20 88/61 L 98 07/05/19 01:05 132 H 07/05/19 00:42 132 H 105/63 Weight Admit Weight 219 lb 9.6 oz Weight 215 lb 6.4 oz I&O: 07/04/19 07/05/19 07/06/19 06:59 06:59 06:59 Intake Total 3850 3929 Output Total 3750 1400 Balance 100 2529 Result Diagrams: 07/05/19 04:49 07/05/19 04:49 Hospitalist ROS - Medication Medications: Active Medications Generic Name Dose Route Start Last Admin Trade Name Freq PRN Reason Stop Dose Admin Acetaminophen 650 mg 07/02/19 19:17 07/04/19 11:29 Tylenol PO 650 mg Q4H PRN Administration Headache/Fever/Mild Pain (1-3) Acetaminophen/Codeine Phosphate 1 tab 07/04/19 11:44 07/05/19 04:16 Tylenol #3 PO 1 tab Q6H PRN Administration Pain Albuterol/Ipratropium 3 ml 07/04/19 09:07 07/04/19 09:20 Duoneb NEB 3 ml Q4H PRN Administration SOB Famotidine 20 mg 07/02/19 21:00 07/04/19 21:22 Pepcid PO 20 mg QPM HERBERT Administration Sodium Chloride 1,000 mls @ 100 mls/hr 07/02/19 23:00 07/05/19 06:31 Normal Saline 0.9% IV 1,000 mls .Q10H HERBERT Administration Cefepime HCl 0.5 gm/ 100 mls @ 200 mls/hr 07/03/19 21:00 07/04/19 21:21 Miscellaneous Medication 1 IVPB 100 mls each/ Sodium Chloride 2100 HERBERT Administration Polyethylene Glycol 17 gm 07/03/19 09:00 07/05/19 08:59 Miralax PO Not Given BID HERBERT Sertraline HCl 200 mg 07/05/19 09:00 07/05/19 09:37 Zoloft PO 200 mg DAILY HERBERT Administration Sodium Bicarbonate 650 mg 07/03/19 09:00 07/05/19 09:00 Bicarbonate, Sodium PO 650 mg TID HERBERT Administration Sodium Chloride 10 ml 07/04/19 09:00 07/05/19 09:00 Flush - Normal Saline IVF 10 ml Q12HR HERBERT Administration - Exam Eye: PERRL, anicteric sclera Heart: RRR, no murmur, no gallops, no rubs, normal peripheral pulses Respiratory: CTAB (+ coarse breath sounds), no wheezes, no rales, no ronchi, normal chest expansion Gastrointestinal: soft, non-tender, non-distended, normal bowel sounds, no palpable masses, no hepatomegaly Extremities: no cyanosis, no clubbing, no edema Hosp A/P (1) [id number] kidney injury Code(s): N17.9 - ACUTE KIDNEY FAILURE, UNSPECIFIED; N18.9 - CHRONIC KIDNEY DISEASE, UNSPECIFIED Status: Acute (2) Bladder cancer Status: Acute (3) Pancytopenia Code(s): D61.818 - OTHER PANCYTOPENIA Status: Chronic - Plan * Acute on chronic kidney disease- awaiting patient and family decision regarding continued treatment * Will manage symptoms- nausea, pain, and indigestion * Possible Hospice
[2019-07-05] MEDS ORDERED: Mag-Al Plus 1200 MG/1200 MG/120 MG/30 ML UDCUP PO PRN (12:09)
[2019-07-05 14:30] VITALS: BMI 27.2
[2019-07-05] MEDS: Cefepime 0.5 GM, Admixture Fee 1 EACH in Sodium Chloride 0.9% 100 ML IVPB SCH (21:31)
[2019-07-05] MEDS: Famotidine 20 MG TAB PO SCH (21:32)
[2019-07-06] MEDS: Diltiazem HCl 125 MG, Admixture Fee 1 EACH in Sodium Chloride 0.9% 100 ML IVPB SCH ×2 (01:51→21:48)
[2019-07-06] MEDS: Sodium Chloride 0.9% 1,000 ML IV SCH ×2 (01:52→10:18)
[2019-07-06 05:01] LABS: #Lymphocytes 0.1 thou/uL (1.20-3.40); #Neutrophils 1.1 thou/uL (1.40-6.50); %Basophils 0.4 % (0.0-1.0); %Eosinophils 0.3 % (0.0-10.0); %Lymphocytes 10.3 % (21.0-51.0); %Monocytes 0.5 % (0.0-10.0); %Neutrophils 88.5 % (42.0-75.0); Hemoglobin 7.6 g/dL (14.0-18.0); Mean Corpuscular HGB CONC 32.8 g/dL (32.0-36.0); Mean Corpuscular Hemoglobin 25.7 pg (27.0-31.0); Mean Corpuscular Volume 78.1 fL (78.0-98.0); Mean Platelet Volume 4.7 fL (7.4-10.4); Platelet Count 39 thou/uL (130-400); RBC Distribution Width 17.5 % (11.5-14.5); Red Blood Cell (RBC) Count 2.97 mill/uL (4.70-6.10); White Blood Cell (WBC) Count 1.3 thou/uL (4.8-10.8)
[2019-07-06 05:13] LABS: Anion Gap 15 mmol/L (10-20); BUN (Urea Nitrogen) 82 mg/dL (8.4-25.7); Calc. Creatinine Clearance 39 mL/min (70-130); Calcium 8.4 mg/dL (7.8-10.44); Carbon Dioxide 14 mmol/L (23-31); Chloride 118 mmol/L (98-107); Estimated GFR-MDRD 26; Glucose 219 mg/dL (80-115); Potassium 3.8 mmol/L (3.5-5.1); Sodium 143 mmol/L (136-145)
[2019-07-06] MEDS: Polyethylene Glycol 3350 17 GM Packet PO SCH ×2 (09:17→21:48)
[2019-07-06] MEDS: Sodium Bicarbonate Tab 325 MG TAB PO SCH ×3 (09:17→21:48)
[2019-07-06] MEDS: Acetaminophen/Codeine 30-300mg Tablet PO PRN ×2 (10:17→21:56)
[2019-07-06 10:19] LABS: Anion Gap 18 mmol/L (10-20); BUN (Urea Nitrogen) 83 mg/dL (8.4-25.7); Calc. Creatinine Clearance 39 mL/min (70-130); Calcium 8.6 mg/dL (7.8-10.44); Carbon Dioxide 13 mmol/L (23-31); Chloride 119 mmol/L (98-107); Estimated GFR-MDRD 25; Glucose 228 mg/dL (80-115); Magnesium 2.6 mg/dL (1.6-2.6); Potassium 4.1 mmol/L (3.5-5.1); Sodium 146 mmol/L (136-145)
--- NOTE | 2019-07-06 10:58 | PRG ---
DATE OF SERVICE: 07/06/2019 SUBJECTIVE: Mr. Mariee is a 68-year-old white male, who was admitted for acute kidney injury on top of his chronic renal failure. He also has known history of metastatic cancer from the original site of his bladder/ureter. He also requested for Zoloft. Zoloft was given at 200 mg tablet once a day. He voices no new complaints except for discomfort of the back. No complaints of chest pain or shortness of breath. OBJECTIVE: VITAL SIGNS: Blood pressure is 114/67, heart rate 107, respiratory rate 18, temperature 98.7, and pulse ox 98% on room air. GENERAL: The patient is awake, alert, comfortable, not in overt distress. SKIN: Adequate turgor. HEENT: He has a slightly pale conjunctivae. Anicteric sclerae. NECK: No neck mass. No carotid bruits. No JVD. CHEST: No deformities. LUNGS: Clear breath sounds. HEART: Normal sinus rhythm. No murmur. No gallops. No rubs. ABDOMEN: Globular, soft, and nontender. No masses. EXTREMITIES: No edema. No deformities. MEDICATIONS: Medications of July 06, 2019, was reviewed. LABORATORY DATA: Laboratories of July 06, 2019; sodium 146, potassium 4.1, chloride 119, carbon dioxide 13, BUN 83, creatinine 2.54, glucose 228, calcium 8.6, and magnesium 2.6. ASSESSMENT AND PLAN: 1. Acute kidney injury/chronic renal failure. Stable renal function. Creatinine 2.54 is approximating baseline. No indication for any dialytic intervention. Continue gentle volume repletion. 2. Mild hypernatremia - continue IV fluids. We will consider changing a normal saline to half-normal saline. 3. Anemia on weekly Epogen. 4. Metastatic cancer - supportive care. Please note, family is contemplating hospice. Job ID: [id number]
[2019-07-06] MEDS: Sodium Chloride 0.45% 1,000 ML IV SCH ×2 (11:30→21:47)
--- NOTE | 2019-07-06 13:35 | PDOC.HOSPP ---
- Subjective Encounter Date: 07/06/19 Encounter Time: 13:32 Subjective: Mr. Myles was seen today in follow-up of acute on chronic kidney . He continues to have aom pain in his back. He says the nausea may be a little better. - Objective Vital Signs & Weight: Vital Signs (12 hours) Temp Pulse Resp BP Pulse Ox 07/06/19 11:35 97.8 F 80 18 136/67 95 07/06/19 07:17 98.7 F 107 H 18 114/67 98 07/06/19 04:00 97.6 F 112 H 18 121/57 L 96 07/06/19 02:55 114 H 119/65 Weight Admit Weight 219 lb 9.6 oz Weight 216 lb 14.4 oz I&O: 07/05/19 07/06/19 07/07/19 06:59 06:59 06:59 Intake Total 3929 2395 Output Total 1400 3750 Balance 2545 -9086 Result Diagrams: 07/06/19 04:39 07/06/19 09:47 Hospitalist ROS - Medication Medications: Active Medications Generic Name Dose Route Start Last Admin Trade Name Freq PRN Reason Stop Dose Admin Acetaminophen 650 mg 07/02/19 19:17 07/04/19 11:29 Tylenol PO 650 mg Q4H PRN Administration Headache/Fever/Mild Pain (1-3) Acetaminophen/Codeine Phosphate 1 tab 07/04/19 11:44 07/06/19 10:17 Tylenol #3 PO 1 tab Q6H PRN Administration Pain Al Hydroxide/Mg Hydroxide 30 ml 07/05/19 12:09 07/05/19 12:37 Maalox Plus PO 30 ml DAILYPRN PRN Administration Heartburn or Indigestion Albuterol/Ipratropium 3 ml 07/04/19 09:07 07/04/19 09:20 Duoneb NEB 3 ml Q4H PRN Administration SOB Famotidine 20 mg 07/02/19 21:00 07/05/19 21:32 Pepcid PO 20 mg QPM HERBERT Administration Cefepime HCl 0.5 gm/ 100 mls @ 200 mls/hr 07/03/19 21:00 07/05/19 21:31 Miscellaneous Medication 1 IVPB 100 mls each/ Sodium Chloride 2100 HERBERT Administration Diltiazem HCl 125 mg/ 125 mls @ 5 mls/hr 07/06/19 01:45 07/06/19 01:51 Miscellaneous Medication 1 IVPB 125 mls each/ Sodium Chloride INF HERBERT Administration Protocol Sodium Chloride 1,000 mls @ 100 mls/hr 07/06/19 10:45 07/06/19 11:30 1/2 Normal Saline IV 1,000 mls .Q10H HERBERT Administration Polyethylene Glycol 17 gm 07/03/19 09:00 07/06/19 09:17 Miralax PO Not Given BID HERBERT Sertraline HCl 200 mg 07/05/19 09:00 07/06/19 09:17 Zoloft PO 200 mg DAILY HERBETR Administration Sodium Bicarbonate 650 mg 07/03/19 09:00 07/06/19 09:17 Bicarbonate, Sodium PO 650 mg TID HERBERT Administration Sodium Chloride 10 ml 07/04/19 09:00 07/06/19 10:14 Flush - Normal Saline IVF Not Given Q12HR HERBERT - Exam Eye: PERRL, anicteric sclera Heart: RRR, no murmur, no gallops, no rubs, normal peripheral pulses Respiratory: CTAB, no wheezes, no rales, no ronchi, normal chest expansion, no tachypnea, normal percussion Gastrointestinal: soft, non-tender, non-distended, normal bowel sounds, no palpable masses, no hepatomegaly Extremities: no cyanosis, no clubbing, no edema Hosp A/P (1) [id number] kidney injury Code(s): N17.9 - ACUTE KIDNEY FAILURE, UNSPECIFIED; N18.9 - CHRONIC KIDNEY DISEASE, UNSPECIFIED Status: Acute (2) Bladder cancer Status: Acute (3) Pancytopenia Code(s): D61.818 - OTHER PANCYTOPENIA Status: Chronic - Plan * Acute on chronic kidney disease- he has declined Dialysis * Will manage symptoms- nausea, pain, and indigestion * Plan to discharge on Hospice Monday
[2019-07-06] MEDS: HYDROcodone/Acetaminophen 5/325 mg Tablet PO PRN (14:22)
[2019-07-06] MEDS: Cefepime 0.5 GM, Admixture Fee 1 EACH in Sodium Chloride 0.9% 100 ML IVPB SCH (21:47)
[2019-07-06] MEDS: Famotidine 20 MG TAB PO SCH (21:48)
[2019-07-07 04:32] LABS: Hemoglobin 7.8 g/dL (14.0-18.0); Mean Corpuscular HGB CONC 32.9 g/dL (32.0-36.0); Mean Corpuscular Hemoglobin 25.8 pg (27.0-31.0); Mean Corpuscular Volume 78.6 fL (78.0-98.0); Mean Platelet Volume 7.2 fL (7.4-10.4); Platelet Count 25 thou/uL (130-400); RBC Distribution Width 17.6 % (11.5-14.5); Red Blood Cell (RBC) Count 3.04 mill/uL (4.70-6.10); White Blood Cell (WBC) Count 0.5 thou/uL (4.8-10.8)
[2019-07-07 04:53] LABS: Anion Gap 16 mmol/L (10-20); BUN (Urea Nitrogen) 81 mg/dL (8.4-25.7); Calc. Creatinine Clearance 42 mL/min (70-130); Calcium 8.6 mg/dL (7.8-10.44); Carbon Dioxide 14 mmol/L (23-31); Chloride 121 mmol/L (98-107); Estimated GFR-MDRD 27; Glucose 236 mg/dL (80-115); Potassium 3.8 mmol/L (3.5-5.1); Sodium 147 mmol/L (136-145)
[2019-07-07] MEDS: Sodium Bicarbonate Tab 325 MG TAB PO SCH ×3 (09:24→20:46)
[2019-07-07] MEDS: Sodium Chloride 0.45% 1,000 ML IV SCH ×2 (09:24→18:11)
[2019-07-07] MEDS: traMADol HCl 50 MG TAB PO PRN ×2 (09:25→18:18)
[2019-07-07] MEDS: Polyethylene Glycol 3350 17 GM Packet PO SCH ×2 (09:25→20:46)
--- NOTE | 2019-07-07 10:33 | PRG ---
DATE OF SERVICE: 07/07/2019 SUBJECTIVE: Mr. Mariee is a 68-year-old white male, seen by the Renal Service for his acute kidney injury on top of his chronic renal failure. He had a superimposed hemodynamically mediated acute kidney injury. Renal function has much improved with IV hydration with this patient. Please note, he has also underlying metastatic cancer. The family is now veering towards hospice. Possibility of discharge in a.m. No new complaints today. He denies any chest pain or shortness of breath. OBJECTIVE: VITAL SIGNS: Blood pressure is 125/61, heart rate 80, respiratory rate 26, temperature 97.6, and pulse ox 97% on room air. GENERAL: He is awake, comfortable, occasionally confused. SKIN: Adequate turgor. HEENT: Slightly pale conjunctivae. Anicteric sclerae. No neck mass. No carotid bruits. No JVD. CHEST: No deformities. LUNGS: Clear breath sounds. No wheezing. No crackles. HEART: Normal sinus rhythm. No murmur. No gallops. No rubs. ABDOMEN: Globular, soft, nontender. No masses. Positive for an ileostomy. EXTREMITIES: No edema. MEDICATIONS: Of July 07, 2019; reviewed. LABORATORIES: July 07, 2019: White count 0.5, hemoglobin 7.8. Sodium 147, potassium 3.8, chloride 121, carbon dioxide 14, BUN 81, creatinine 2.39, glucose 236, and calcium 8.6. ASSESSMENT AND PLAN: 1. Acute kidney injury/chronic renal failure - superimposed hemodynamically mediated renal dysfunction. Improving renal function with IV hydration. No indication for any dialysis. 2. Metastatic cancer/bladder cancer - stable. The patient is undergoing palliative chemotherapy. 3. Pancytopenia, related to the recent chemotherapy. I discussed the case with the . They plan to bring him home tomorrow under hospice. Agree with current management. Job ID: [id number]
--- NOTE | 2019-07-07 11:19 | PDOC.HOSPP ---
- Subjective Encounter Date: 07/07/19 Encounter Time: 11:17 Subjective: Mr. Mariee was seen today in follow-up of acute on chronic kidney disease. He does not have any new complaints. - Objective Vital Signs & Weight: Vital Signs (12 hours) Temp Pulse Resp BP Pulse Ox 07/07/19 08:05 99 07/07/19 08:00 97.6 F 80 26 H 125/61 99 07/07/19 04:00 97.8 F 80 18 132/63 99 07/07/19 00:00 80 124/66 Weight Admit Weight 219 lb 9.6 oz Weight 216 lb 12.8 oz I&O: 07/06/19 07/07/19 07/08/19 06:59 06:59 06:59 Intake Total 2395 1760 500 Output Total 3750 1350 Balance -1355 410 500 Result Diagrams: 07/07/19 04:06 07/07/19 04:06 Hospitalist ROS - Medication Medications: Active Medications Generic Name Dose Route Start Last Admin Trade Name Freq PRN Reason Stop Dose Admin Acetaminophen 650 mg 07/02/19 19:17 07/04/19 11:29 Tylenol PO 650 mg Q4H PRN Administration Headache/Fever/Mild Pain (1-3) Acetaminophen/Codeine Phosphate 1 tab 07/04/19 11:44 07/06/19 21:56 Tylenol #3 PO 1 tab Q6H PRN Administration Pain Hydrocodone Bitart/Acetaminophen 1 tab 07/06/19 13:27 07/06/19 14:22 [place] 5/325 PO 1 tab Q4H PRN Administration Moderate Pain (4-6) Al Hydroxide/Mg Hydroxide 30 ml 07/05/19 12:09 07/05/19 12:37 Maalox Plus PO 30 ml DAILYPRN PRN Administration Heartburn or Indigestion Albuterol/Ipratropium 3 ml 07/04/19 09:07 07/04/19 09:20 Duoneb NEB 3 ml Q4H PRN Administration SOB Cefepime HCl 0.5 gm/ 100 mls @ 200 mls/hr 07/03/19 21:00 07/06/19 21:47 Miscellaneous Medication 1 IVPB 100 mls each/ Sodium Chloride 2100 HERBERT Administration Diltiazem HCl 125 mg/ 125 mls @ 5 mls/hr 07/06/19 01:45 07/06/19 21:48 Miscellaneous Medication 1 IVPB 125 mls each/ Sodium Chloride INF HERBERT Administration Protocol Sodium Chloride 1,000 mls @ 100 mls/hr 07/06/19 10:45 07/07/19 09:24 1/2 Normal Saline IV 1,000 mls .Q10H HERBERT Administration Pantoprazole Sodium 40 mg 07/07/19 09:00 07/07/19 10:24 Protonix PO 40 mg DAILY HERBERT Administration Polyethylene Glycol 17 gm 07/03/19 09:00 07/07/19 09:25 Miralax PO Not Given BID HERBERT Sertraline HCl 200 mg 07/05/19 09:00 07/07/19 09:24 Zoloft PO 200 mg DAILY HERBERT Administration Sodium Bicarbonate 650 mg 07/03/19 09:00 07/07/19 09:24 Bicarbonate, Sodium PO 650 mg TID HERBERT Administration Sodium Chloride 10 ml 07/04/19 09:00 07/07/19 09:26 Flush - Normal Saline IVF 10 ml Q12HR HERBERT Administration Tramadol HCl 50 mg 07/05/19 12:09 07/07/19 09:25 Ultram PO 50 mg Q6H PRN Administration Moderate Pain (4-6) - Exam Eye: PERRL Heart: RRR, no murmur, no gallops, no rubs, normal peripheral pulses Respiratory: CTAB, no wheezes, no rales, no ronchi, normal chest expansion Gastrointestinal: soft, non-tender, non-distended, normal bowel sounds Extremities: no cyanosis, no clubbing, no edema Hosp A/P (1) [id number] kidney injury Code(s): N17.9 - ACUTE KIDNEY FAILURE, UNSPECIFIED; N18.9 - CHRONIC KIDNEY DISEASE, UNSPECIFIED Status: Acute (2) Bladder cancer Status: Acute (3) Pancytopenia Code(s): D61.818 - OTHER PANCYTOPENIA Status: Chronic - Plan * New End stage renal disease- he has declined Dialysis * Bladder cancer * Continue symptoma management * Plan to discharge on Hospice Monday
--- NOTE | 2019-07-07 16:21 | EKG ---
Test Reason : STAT Blood Pressure : / mmHG Vent. Rate : 139 BPM Atrial Rate : 141 BPM P-R Int : 000 ms QRS Dur : 176 ms QT Int : 390 ms P-R-T Axes : 000 -53 116 degrees QTc Int : 593 ms Wide complex tachycardia probably Ventricular Tachycardia Left axis deviation Confirmed by DR. Yanique GUTIERRES ([id number]) on 07/07/2019 4:20:45 PM Referred By: ADELE ALCARAZ Confirmed By:DR. Yanique GUTIERRES
[2019-07-07] MEDS: Diltiazem HCl 125 MG, Admixture Fee 1 EACH in Sodium Chloride 0.9% 100 ML IVPB SCH (20:45)
[2019-07-07] MEDS: Cefepime 0.5 GM, Admixture Fee 1 EACH in Sodium Chloride 0.9% 100 ML IVPB SCH (20:46)
[2019-07-08] MEDS: Sodium Chloride 0.45% 1,000 ML IV SCH (03:03)
[2019-07-08] MEDS: HYDROcodone/Acetaminophen 5/325 mg Tablet PO PRN (05:11)
[2019-07-08] MEDS: Sodium Bicarbonate Tab 325 MG TAB PO SCH ×2 (08:37→14:47)
[2019-07-08] MEDS: Polyethylene Glycol 3350 17 GM Packet PO SCH (08:37)
[2019-07-08 13:29] VITALS: BP 139/70; TEMP 97.1
--- NOTE | 2019-07-09 05:03 | DIS ---
DATE OF ADMISSION: 07/02/2019 DATE OF DISCHARGE: 07/08/2019 PRIMARY CARE PHYSICIAN: Arthur Serra DO. DISCHARGE DISPOSITION: Home with home hospice. DISCHARGE DIAGNOSES: 1. End-stage renal disease. 2. Bladder cancer. 3. Status post ileal conduit. 4. Depression. 5. Chronic systolic heart failure. 6. Urinary tract infection. DISCHARGE MEDICATIONS: Include: 1. Levaquin 500 mg p.o. daily. 2. Protonix 40 mg daily. 3. Zoloft 300 mg daily. 4. Omeprazole 20 mg daily. 5. Multivitamin once daily. 6. Metoprolol-XL 25 mg p.o. daily. 7. Magnesium glycinate 400 mg daily. 8. Levothyroxine 175 mcg p.o. daily. 9. Lamotrigine 100 mg daily. 10. Lantus insulin 30 units subcu twice daily. 11. Humalog as needed. 12. Estazolam 1 mg p.o. at bedtime. 13. Flexeril 10 mg p.o. t.i.d. 14. Aspirin 81 mg daily. 15. Abilify 2 mg p.o. daily. 16. Eliquis 5 mg twice daily. 17. Xanax 0.25 mg t.i.d. CODE STATUS: DNAR. ALLERGIES: TO ADHESIVE TAPE, CODEINE, AND VANCOMYCIN. HOSPITAL COURSE: Mr. Mariee is a pleasant 68-year-old gentleman, who was admitted to the hospital after he was found to have worsening renal function. He was admitted to the hospital and a renal ultrasound was done showing some mild hydronephrosis and moderate left-sided hydronephrosis. He was at the point of requiring dialysis and there was discussion with the family and the patient and the decision was made to forego renal replacement therapy and consider hospice given his multiple medical conditions including bladder cancer, heart failure, and he was also found to have some arrhythmia during his hospital stay as well. Once the outpatient hospice was arranged, the patient was discharged home on 07/08/2019. Job ID: [id number]
== END 2019-07-08 16:58 | disposition hospice, home (50) | DRG 682 ==
LOC: ERS 15:05 → 2NO 17:04
PROVIDERS: ADMIT Hospitalist; ATTEND Hospitalist
PROC: 30233N1 Transfusion of Nonautologous Red Blood Cells into Peripheral Vein, Percutaneous Approach (ICD-10-PCS; principal; 2019-07-04)
DX: N17.9 Acute kidney failure, unspecified (principal); D61.810 Antineoplastic chemotherapy induced pancytopenia; E43 Unspecified severe protein-calorie malnutrition; E87.2 Acidosis; E87.1 Hypo-osmolality and hyponatremia; C79.51 Secondary malignant neoplasm of bone; C77.9 Secondary and unspecified malignant neoplasm of lymph node, unspecified; E87.0 Hyperosmolality and hypernatremia; I13.2 Hypertensive heart and chronic kidney disease with heart failure and with stage 5 chronic kidney disease, or end stage renal disease; I50.22 Chronic systolic (congestive) heart failure; Z66 Do not resuscitate; Z51.5 Encounter for palliative care; C67.9 Malignant neoplasm of bladder, unspecified; F32.9 Major depressive disorder, single episode, unspecified; E03.9 Hypothyroidism, unspecified; G40.909 Epilepsy, unspecified, not intractable, without status epilepticus; T45.1X5A Adverse effect of antineoplastic and immunosuppressive drugs, initial encounter; I48.91 Unspecified atrial fibrillation; C61 Malignant neoplasm of prostate; I95.9 Hypotension, unspecified; D63.1 Anemia in chronic kidney disease; N13.6 Pyonephrosis; E78.00 Pure hypercholesterolemia, unspecified; K21.9 Gastro-esophageal reflux disease without esophagitis; E11.22 Type 2 diabetes mellitus with diabetic chronic kidney disease; N18.6 End stage renal disease; Z95.0 Presence of cardiac pacemaker; Z88.5 Allergy status to narcotic agent; Z88.1 Allergy status to other antibiotic agents; Z79.01 Long term (current) use of anticoagulants; Z79.4 Long term (current) use of insulin; Z79.891 Long term (current) use of opiate analgesic; Z79.890 Hormone replacement therapy; Z79.899 Other long term (current) drug therapy; Z79.82 Long term (current) use of aspirin; Z95.810 Presence of automatic (implantable) cardiac defibrillator; Z93.2 Ileostomy status; Z68.27 Body mass index [BMI] 27.0-27.9, adult
CPT/HCPCS: 36415; 36416; 36430; 71045; 76770; 80048; 80053; 81003; 81015; 82248; 82553; 83605; 83615; 83735; 84100; 84484; 84550; 85025; 86850; 86900; 86901; 87040; 87077; 87086; 87186; 93005; 93010; 94640; 96360; 96361; J0692; J1160; J3490; J7620; P9016; P9047